=== PATIENT | male | born 1965 | race Caucasian/White ===

== ENCOUNTER 2016-08-08 22:25 | Emergency (ER) | payer SELFPAY ==
[2016-08-09] MEDS ORDERED: DIAZEPAM INJ 10 MG/2 ML DISP.SYRIN IM ONE (02:17)
--- NOTE | 2016-08-09 02:17 | ER Document Report ---
HPI - HPI Patient complains to provider of: right shoulder pain Pain Level: 5 Context: Patient is a 51 year old male that comes to the ED for chief complaint of right shoulder pain, worsening for 2 weeks, worse with movement. He states today he started getting sharp pains with any movement, has reduced range of motion. 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 Patient denies chest pain , shortness of breath, history of the same. He states he took Aleve and tramadol without relief. - CONSTITUTIONAL Constitutional: DENIES: Fever, Chills - EENT EENT: DENIES: Sore Throat, Ear Pain, Nasal Drainage-Clear, Nasal Drainage- Purulent, Congestion, Eye problems - NEURO Neurology: DENIES: Headache, Weakness, Vision blurred, Dizzinesss / Vertigo - CARDIOVASCULAR Cardiovascular: DENIES: Chest pain - RESPIRATORY Respiratory: DENIES: Trouble Breathing, Coughing - GASTROINTESTINAL Gastrointestinal: DENIES: Abdominal Pain, Nausea, Patient vomiting, Diarrhea, Constipation - URINARY Urinary: DENIES: Dysuria, Urgency - MUSCULOSKELETAL Musculoskeletal: REPORTS: Extremity pain - R shoulder. DENIES: Back Pain, Neck Pain, Swelling - DERM Skin Color: Normal, [place] Skin Problems: None - NURSING COMMENTS Comment: Pt presents with c/o severe R shoulder/ upper arm pain. States no known injury. Onset 2 weeks. Now R hand is starting to swell. Shoulder very painful to touch. Sits holding R arm. Will not move it. A/O, answers questions. in at bedside. Past Medical History - General Information source: Patient - Social History Smoking Status: Former Smoker Drug Abuse: None Lives with: Family Family History: Reviewed & Not Pertinent - Past Medical History Cardiac Medical History: Reports: Hx Coronary Artery Disease, Hx Heart Attack Renal/ Medical History: Denies: Hx Peritoneal Dialysis Past Surgical History: Reports: Hx Cardiac Catheterization - Immunizations Hx Diphtheria, Pertussis, Tetanus Vaccination: Yes Vertical Provider Document - CONSTITUTIONAL General Appearance: Mild Distress - Patient is calm and relaxed unless he moves , if he moves his right arm he winces in pain. - INFECTION CONTROL TRAVEL OUTSIDE OF THE [place] IN LAST 30 DAYS: No - HEENT HEENT: Atraumatic, Normocephalic - NECK Neck: Normal Inspection - RESPIRATORY Respiratory: Breath Sounds Normal, No Respiratory Distress O2 Sat by Pulse Oximetry: 96 - CARDIOVASCULAR Cardiovascular: Regular Rate, Regular Rhythm - GI/ABDOMEN Gastrointestinal: Abdomen Soft, Abdomen Non-Tender - BACK Back: Normal Inspection - MUSCULOSKELETAL/EXTREMETIES Musculoskeletal/Extremeties: Tender - Patient is tender with tight muscle cords over the posterior shoulder, also tender in the AC joint and over the humeral head extending slightly down the humerus but not to the midline humerus. Patient has difficulty performing any range of motion of the right arm. Normal spinal exam with no midline tenderness, no saddle anesthesia, normal distal neurovascular exam throughout. Patient has normal chief of service strength in the right arm. Course - Vital Signs Vital signs: Temp Pulse Resp BP Pulse Ox 97.7 F 66 16 121/71 96 08/08/16 23:10 08/08/16 23:10 08/08/16 23:10 08/08/16 23:10 08/08/16 23:10 - Diagnostic Test Radiology reviewed: Image reviewed, Reports reviewed Discharge - Discharge Clinical Impression: Right shoulder pain Qualifiers: Chronicity: acute Qualified Code(s): M25.511 - Pain in right shoulder Condition: Stable Disposition: HOME, SELF-CARE Additional Instructions: Your x-ray is concerning for a probably [place] injury of the bone - wear the shoulder sling, apply ice to the shoulder, take the pain medication, follow up with Orthopedics for additional management. Your exam is also consistent with some muscular spasm. Return to the ED for any concerning or worsening symptoms. Prescriptions: Naproxen 500 mg PO BID #20 tablet Oxycodone HCl/Acetaminophen [Percocet 5-325 mg Tablet] 1 - 2 tab PO Q4H PRN #20 tablet PRN Reason: Forms: Return to Work Referrals: CHELI MONTE MD [ACTIVE STAFF] - 08/10/16
--- NOTE | 2016-08-09 02:38 | RADIOLOGY REPORT (SQ) ---
EXAM DESCRIPTION: SHOULDER RIGHT 2 OR MORE VIEWS COMPLETED DATE/TIME: 08/09/2016 2:11 am REASON FOR STUDY: pain s/p possible injury COMPARISON: None. NUMBER OF VIEWS: Three views. TECHNIQUE: Internal rotation, external rotation, and Y view images acquired of the right shoulder. LIMITATIONS: None. FINDINGS: MINERALIZATION: Normal. BONES: No acute fracture or dislocation. No worrisome bone lesions. Small fragmentation of the infe rior glenoid. JOINTS: No dislocation. Mild acromioclavicular osteoarthritis. VISUALIZED LUNGS AND RIBS: No pneumothorax. No rib fracture. SOFT TISSUES: No radiopaque foreign body. Small calcification of the right rotator cuff may indicate calcific tendinitis. OTHER: No other significant finding. IMPRESSION: Small fragmentation of the inferior glenoid may indicate a bony [place] injury of unknow n chronicity. TECHNICAL DOCUMENTATION: JOB ID: [id number] [employer]- All Rights Reserved
[2016-08-09] MEDS ORDERED: HYDROCODONE/ACETAMINOPHEN 5-325 MG 6 TAB/DSPK PO PRN (03:17)
[2016-08-09 03:34] VITALS: BP 122/74
== END 2016-08-09 03:45 | disposition home or self-care (01) ==
LOC: ER 22:25
DX: M25.511 Pain in right shoulder (principal); M79.89 Other specified soft tissue disorders; I25.10 Atherosclerotic heart disease of native coronary artery without angina pectoris; I25.2 Old myocardial infarction; Z87.891 Personal history of nicotine dependence
CPT/HCPCS: 99283; 96372; 73030; J3360